=== PATIENT | female | born 1935 ===

== ENCOUNTER 2018-04-02 18:48 | Outpatient (CLI) | payer OTHER ==
[~2018-04-02 18:48] MED LIST: MACROBID 100 M100 MG PO; ULTRACET PO
== END 2018-04-02 19:37 | disposition home or self-care (01) ==
LOC: LAB 18:48
DX: N39.0 Urinary tract infection, site not specified (principal); R82.79 Other abnormal findings on microbiological examination of urine

== ENCOUNTER 2019-10-27 14:51 | Inpatient (IN) | payer OTHER ==
[~2019-10-27] VITALS: Ht 152.4 cm; Wt 55.3 kg
[2019-10-27] MEDS ORDERED: LOTREL 5-20 MG1 CAP (15:10)
[2019-10-27] MEDS ORDERED: SYNTHROID88 MCG (15:11)
[2019-10-27] MEDS ORDERED: ARICEPT10 MG (15:11)
[2019-10-27] MEDS ORDERED: FENOFIBRATE150 MG (15:11)
[2019-10-27] MEDS ORDERED: DITROPAN XL5 MG (15:12)
== END 2019-11-01 19:05 | disposition home or self-care (01) | DRG 330 ==
LOC: ER 14:51 → SURH 15:29
PROVIDERS: ADMIT Surgery; ATTEND Surgery
PROC: 0DBN7ZZ Excision of Sigmoid Colon, Via Natural or Artificial Opening (ICD-10-PCS; 2019-10-29)
PROC: 0DTP7ZZ Resection of Rectum, Via Natural or Artificial Opening (ICD-10-PCS; 2019-10-29)
PROC: 0DQP7ZZ Repair Rectum, Via Natural or Artificial Opening (ICD-10-PCS; principal; 2019-10-29 19:00)
DX: K62.3 Rectal prolapse (principal); K62.5 Hemorrhage of anus and rectum; I10 Essential (primary) hypertension; E03.9 Hypothyroidism, unspecified; D50.0 Iron deficiency anemia secondary to blood loss (chronic); R15.9 Full incontinence of feces

== ENCOUNTER 2021-06-22 10:30 | Inpatient (IN) | payer OTHER ==
[~2021-06-22] VITALS: Ht 154.9 cm; Wt 58.1 kg
[~2021-06-22 10:30] MED LIST changes: +ARICEPT10 MG; +DITROPAN XL5 MG; +FENOFIBRATE150 MG; +LOTREL 5-20 MG1 CAP; +SYNTHROID88 MCG
[2021-06-29] MEDS ORDERED: AMLODIPINE BESYL5 MG (09:06)
== END 2021-07-04 16:29 | disposition home or self-care (01) | DRG 330 ==
LOC: SURG 06-28 18:46 → SEC-K 06-28 18:46 → SURG 06-28 19:39 → SURH 06-29 10:45 → SURG 07-04 16:29
PROVIDERS: ADMIT Surgery; ATTEND Surgery
PROC: 0D1N4Z4 Bypass Sigmoid Colon to Cutaneous, Percutaneous Endoscopic Approach (ICD-10-PCS; principal; 2021-06-28)
PROC: 0DQP4ZZ Repair Rectum, Percutaneous Endoscopic Approach (ICD-10-PCS; 2021-06-28)
PROC: 0JQC0ZZ Repair Pelvic Region Subcutaneous Tissue and Fascia, Open Approach (ICD-10-PCS; 2021-06-28)
DX: K62.3 Rectal prolapse (principal); N39.0 Urinary tract infection, site not specified; R15.9 Full incontinence of feces; N81.11 Cystocele, midline; D50.0 Iron deficiency anemia secondary to blood loss (chronic); I11.9 Hypertensive heart disease without heart failure; B96.89 Other specified bacterial agents as the cause of diseases classified elsewhere